=== PATIENT | male | born 1980 | race Caucasian/White ===

== ENCOUNTER 2018-07-04 12:20 | Day surgery (SDC) | payer OTHER ==
[2018-07-04] VITALS (8 sets, daily range): BP systolic 101–133; BP diastolic 48–81; PULSE 72–88; RESP 14–19; Ht 175.3 cm; Wt 89.9 kg
[~2018-07-04] VITALS: Ht 175.3 cm; Wt 89.9 kg
--- NOTE | 2018-07-04 12:51 | HPN ---
Date/Time of Note Date/Time of Note DATE: 07/04/18 TIME: 12:50 Interval H&P Admission Note Pt. seen H&P reviewed: No system changes CARON MUHAMMAD Jul 04, 2018 12:51
[2018-07-04] MEDS ORDERED: POLYMYXIN/BACITRACIN 1L IRRIG ONE (13:30)
[2018-07-04] MEDS ORDERED: BUPIVACAINE 0.5% (SDV) 30 ML INJ ONE (13:30)
--- NOTE | 2018-07-04 13:38 | PREAC ---
Date/Time of Note Date/Time of Note DATE: 07/04/18 TIME: 13:37 Anesthesia Eval and Record Evaluation Time Pre-Procedure Interview DATE: 07/04/18 TIME: 13:37 Age 37 Sex male NPO: 8 hrs Preoperative diagnosis Right Carpal Tunnel, Right Thumb ulnar digital nerve neuroma Planned procedure Right Carpal Tunnel release and Right Thumb neurolysis Past Medical History Past Medical History: Includes Pulm: Smoking Hx (1PPDX 15 yrs) Surgery & Anesthesia Issues No known issue Meds Anticoagulation: No Beta Aisha within 24 hr: No Reason Beta Aisha not given: Pt. not on B-Aisha No Active Prescriptions or Reported Meds Meds reviewed: Yes Allergies Coded Allergies: No Known Allergy (Unverified , 07/04/18) Allergies Reviewed: Yes Labs/Studies Labs Reviewed: Reviewed by anesthesiologist test: N/A Studies: ECG (n/a), CXR (n/a) Pre-procedure Exam Last vitals Vital Signs Date Temp Pulse Resp B/P (MAP) Pulse Ox O2 O2 Flow FiO2 Time Delivery Rate 07/04/18 98.0 87 16 133/81 96 13:18 (98) Airway: Adequate mouth opening, Adequate thyromental dist Mallampati: Mallampati II Teeth: Normal Lung: Normal Heart: Normal ASA Physical Status ASA physical status: 2 Emergency: None Planned Anesthetic General/MAC: LMA Planned Pain Management Parenteral pain med Pre-operative Attestations Prior to commencing anesthesia and surgery, the patient was re-evaluated, there was verification of: *The patient's identity *The results of appropriate recent lab work and preoperative vital signs *The above evaluation not changing prior to induction *Anesthetic plan, risk benefits, alternative and complications discussed with patient/family; questions answered; patient/family understands, accepts and wishes to proceed. ELIE ADAME MD Jul 04, 2018 13:38
[2018-07-04] MEDS ORDERED: MIDAZOLAM 1 MG/ML 2 ML INJ ONE (13:40)
[2018-07-04] MEDS ORDERED: CEFAZOLIN 1 GM INJ ONE (13:40)
[2018-07-04] MEDS ORDERED: PROPOFOL 20 ML ONE (13:40)
[2018-07-04] MEDS ORDERED: FENTAnyl 50 MCG/ML VIAL ONE (13:40)
[2018-07-04] MEDS ORDERED: METOCLOPRAMIDE 10 MG INJ ONE (13:49)
[2018-07-04] MEDS ORDERED: KETOROLAC 30 MG INJ ONE (13:49)
[2018-07-04] MEDS ORDERED: DEXAMETHASONE 4 MG/ML 5 ML INJ ONE (13:49)
[2018-07-04] MEDS ORDERED: ONDANSETRON 4 MG INJ ONE (13:49)
[2018-07-04] MEDS ORDERED: METOCLOPRAMIDE 10 MG INJ IV PRN (14:00)
[2018-07-04] MEDS ORDERED: OXYCODONE/ACETAMINOPHEN (5/325) TAB PO PRN ×2 (14:00)
[2018-07-04] MEDS ORDERED: EPHEDrine SULFATE 50 MG/5 ML SYG IV PRN (14:00)
[2018-07-04] MEDS ORDERED: ONDANSETRON 4 MG INJ IV PRN (14:00)
[2018-07-04] MEDS ORDERED: HYDROmorphONE 1 MG/5 ML IV SYRINGE IV PRN ×2 (14:00)
[2018-07-04] MEDS ORDERED: LABETALOL HCL 20MG INJ IV PRN (14:00)
[2018-07-04] MEDS ORDERED: FENTAnyl 50 MCG/ML VIAL IV PRN ×2 (14:00)
--- NOTE | 2018-07-04 14:22 | OPPN ---
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
--- NOTE | 2018-07-04 14:24 | PAC ---
Date/Time of Note Date/Time of Note DATE: 07/04/18 TIME: 14:23 Post-Anesthesia Notes Post-Anesthesia Note Last documented vital signs Vital Signs Date Temp Pulse Resp B/P (MAP) Pulse Ox O2 O2 Flow FiO2 Time Delivery Rate 07/04/18 98.0 87 16 133/81 96 face mask 8 L 14:28 (98) Activity: WNL Respiratory function: WNL Cardiovascular function: WNL Mental status: Baseline Pain reasonably controlled: Yes Hydration appropriate: Yes Nausea/Vomiting absent: Yes ELIE ADAME MD Jul 04, 2018 14:24
--- NOTE | 2018-07-04 16:54 | OPR ---
DATE OF OPERATION: 07/04/2018 SURGEON: Akbar Tucker MD ANESTHESIA: General. PREOPERATIVE DIAGNOSES: 1. Right thumb ulnar digital nerve neuroma. 2. Right carpal tunnel syndrome. POSTOPERATIVE DIAGNOSES: 1. Right thumb ulnar digital nerve neuroma. 2. Right carpal tunnel syndrome. 3. Right thumb radial digital nerve neuroma. PROCEDURES: 1. Right thumb ulnar digital nerve neurolysis. 2. Right carpal tunnel release, open. 3. Right thumb radial digital nerve neurolysis. OPERATIVE FINDINGS: Neuroma at the right thumb ulnar digital nerve as well as radial digital nerve n ear the MP crease, compression of the median nerve at the carpal tunnel. INDICATION FOR PROCEDURE: This is a 37-year-old male with longstanding right thumb pain as well as n umbness in the hand and failed conservative measures, elected to proceed with surgical intervention, understanding the risks and benefits. DESCRIPTION OF PROCEDURE: The patient was seen in the preoperative area. All of further questions w ere answered. Again, he gave informed consent understanding risks and benefits. He was taken to ope rative suite in the supine position. He was placed under general anesthesia and tourniquet was place d in the right upper extremity. Right upper extremity was prepped with ChloraPrep stick in the usual sterile fashion. Esmarch bandage was used to exsanguinate the extremity and tourniquet was inflated to 250 mmHg. Attention was first turned to the carpal tunnel and a 2 cm incision at the base of the palm was utilized with sharp dissection carried down through skin and subcutaneous tissue. The palm ar aponeurosis was incised along its ulnar border and retractors were deepened. The transverse carpa l ligament was divided along its ulnar border approximately 3 mm radial to the hook of the hamate. R etraction was placed proximally and distally and proximal and distal to the transverse carpal ligamen t were divided under direct visualization. Wound was copiously and skin was closed with 5-0 nylon. Attention was turned to the thumb and longitudinal incision over the ulnar digital nerve was utilized with sharp dissection carried down through skin and subcutaneous tissue. Tenotomy scissor divided t he soft tissues overlying the ulnar digital nerve and the ulnar digital artery was coursing directly next to it. The artery was protected and the nerve was dissected out and a neurolysis was performed. There was significant scar tissue formation and compression surrounding the ulnar digital nerve as well as a neuroma present. After adequate neurolysis, the nerve moved freely without compression. T he patient also had symptoms at the radial digital nerve and asked me to examine this area during the surgery. A separate incision was made over the radial digital nerve and sharp dissection through sk in and superficial dermis. Tenotomy scissor divided the soft tissues overlying the radial digital ne rve which was visualized and had adhesions as well as neuroma itself. A neurolysis was performed of the radial digital nerve. The wounds were copiously irrigated. Skin was closed with 5-0 nylon. Xer oform was placed over the wounds followed by sterile gauze, Webril and bias dressing. Tourniquet was deflated after 23 minutes. The patient was awakened from anesthesia. He was taken to the postopera tive suite in stable condition, tolerated procedure well without complication. SPECIMENS: None. ESTIMATED BLOOD LOSS: 5 mL. COUNTS: Sponge, instrument and needle counts correct. TOURNIQUET TIME: 23 minutes. CONDITION ON DISCHARGE: Stable. The patient was given a nonrefillable 5-day prescription for pain medication for surgery today. Dictated By: AKBAR DAN/ALEX Conf#: [id number] DID#: [id number]
== END 2018-07-04 16:15 | disposition home or self-care (01) ==
LOC: SDS 12:20
PROVIDERS: ATTEND Orthopaedic Surgery Hand Surgery
DX: D36.12 Benign neoplasm of peripheral nerves and autonomic nervous system, upper limb, including shoulder (principal); G56.01 Carpal tunnel syndrome, right upper limb; Z87.891 Personal history of nicotine dependence
CPT/HCPCS: 64708; J0690; J1100; J1885; J2250; J2405; J2765; J3010